=== PATIENT | male | born 1965 | race Caucasian/White ===

== ENCOUNTER 2025-04-22 18:21 | Emergency (ER) | payer SELFPAY ==
[~2025-04-22] VITALS: Ht 167.6 cm; Wt 78.0 kg
[2025-04-22 18:23] VITALS: O2SAT 96
[2025-04-22 19:54] LABS: EOSINOPHILS % 0.1 % (0.0-5.0); HEMATOCRIT. 36.8 % (42.0-52.0); HEMOGLOBIN. 11.9 g/dL (14.0-18.0); LYMPHOCYTES % 20.2 % (20.0-50.0); MEAN CORPUSCULAR HEMOGLOBIN 24.8 pg (28.0-32.0); MEAN CORPUSCULAR HGB CONC 32.3 g/dL (31.0-37.0); MEAN CORPUSCULAR VOLUME 76.8 fL (80.0-94.0); MEAN PLATELET VOLUME 9.5 fl (7.4-10.4); MONOCYTES % 6.8 % (2.0-8.0); NEUTROPHILS % 71.9 % (40.0-76.0); PLATELET 163 x1000/uL (130-400); RED BLOOD CELL COUNT 4.79 mill/uL (4.7-6.1); WHITE BLOOD COUNT 5.3 x1000/uL (4.5-11.0)
[2025-04-22 19:55] LABS: ADD RBC MORPHOLOGY YES; DIFFERENTIAL COMMENT 1
[2025-04-22 20:05] LABS: INR 1.1; PROTHROMBIN TIME 11.3 sec (9.6-11.0)
[2025-04-22 20:07] LABS: CHLORIDE 90 mEq/L (98-107); SODIUM 131 mEq/L (136-145)
[2025-04-22 20:08] LABS: CALCIUM 8.8 mg/dL (8.7-10.4); CARBON DIOXIDE 20 mEq/L (21-32)
[2025-04-22 20:13] LABS: CREATININE 0.7 mg/dL (0.6-1.3); GLUCOSE 96 mg/dL (70-105); TROPONIN I HIGH SENSITIVITY 7 ng/L (3.0-53); UREA NITROGEN BLOOD 12 mg/dL (9-23)
[2025-04-22 20:14] LABS: ANISOCYTOSIS 2+; HYPOCHROMASIA 1+; PLATELET ESTIMATE NORMAL
[2025-04-22 20:15] LABS: MICROCYTOSIS 1+
[2025-04-22 20:22] LABS: ETHANOL BLOOD 350 mg/dL (<10)
[2025-04-22 20:39] VITALS: TEMP 36.7
[2025-04-22 22:05] LABS: TROPONIN I HIGH SENSITIVITY 6 ng/L (3.0-53)
[2025-04-23] MEDS: POTASSIUM CHLORIDE 20MEQ TABLET SR PO NR (01:01)
[2025-04-23] MEDS: KCL 20MEQ/100ML PREMIX 100 ML IV NR (01:01)
[2025-04-23 02:43] VITALS: BP 125/81; PULSE 95; RESP 16; O2SAT 97
== END 2025-04-23 03:10 | disposition home or self-care (01) ==
LOC: ER 18:21 → CANBEDREQ 04-23 03:01 → ER 04-23 03:10
DX: R07.89 Other chest pain (principal); G92.9 Unspecified toxic encephalopathy; W06.XXXA Fall from bed, initial encounter; Y93.89 Activity, other specified; Y92.89 Other specified places as the place of occurrence of the external cause; Y99.8 Other external cause status
CPT/HCPCS: 80048; 80320; 85025; 85610; 84484; 36415; 71045; 93005; 99285; 96365; J3480; G0480

== ENCOUNTER 2025-05-28 17:53 | Emergency (ER) | payer MEDICAID ==
[~2025-05-28] VITALS: Ht 167.6 cm; Wt 75.0 kg
[2025-05-28 18:03] VITALS: O2SAT 100
[2025-05-28 19:48] LABS: BASOPHILS % 1.8 % (0.0-2.0); EOSINOPHILS % 1.0 % (0.0-5.0); HEMATOCRIT. 35.6 % (42.0-52.0); HEMOGLOBIN. 11.5 g/dL (14.0-18.0); LYMPHOCYTES % 32.3 % (20.0-50.0); MEAN PLATELET VOLUME 8.7 fl (7.4-10.4); MONOCYTES % 6.9 % (2.0-8.0); NEUTROPHILS % 58.0 % (40.0-76.0); PLATELET 149 x1000/uL (130-400); RED BLOOD CELL COUNT 4.25 mill/uL (4.7-6.1); RED CELL DISTRIBUTION WIDTH 24.8 % (11.6-14.6)
[2025-05-28 19:49] LABS: ADD RBC MORPHOLOGY YES
[2025-05-28 20:01] LABS: CREATININE 0.5 mg/dL (0.6-1.3)
[2025-05-28 20:02] LABS: UREA NITROGEN BLOOD 6 mg/dL (9-23)
[2025-05-28 20:04] LABS: PLATELET ESTIMATE NORMAL
[2025-05-28] MEDS: KETOROLAC 15MG/ML VIAL IM ONE (22:02)
[2025-05-28] MEDS: LIDOCAINE 5% PATCH TOP SCH (22:02)
[2025-05-28] MEDS ORDERED: NAPR-1176 MT (22:13)
[2025-05-28] MEDS ORDERED: LIDO-53 TP (22:13)
[2025-05-28 22:38] VITALS: BP 115/71; PULSE 90; RESP 18; TEMP 36.6; O2SAT 98
== END 2025-05-28 22:40 | disposition home or self-care (01) ==
LOC: ER 17:53
DX: R07.81 Pleurodynia (principal); F32.A Depression, unspecified; F10.90 Alcohol use, unspecified, uncomplicated; Z79.1 Long term (current) use of non-steroidal anti-inflammatories (NSAID); Y90.9 Presence of alcohol in blood, level not specified; W19.XXXA Unspecified fall, initial encounter; Y93.89 Activity, other specified; Y92.89 Other specified places as the place of occurrence of the external cause; Y99.8 Other external cause status
CPT/HCPCS: 99284; 80048; 85025; 36415; 71101; 96372; J1885

== ENCOUNTER 2025-09-29 12:39 | Emergency (ER) | payer MEDICAID, OTHER ==
[~2025-09-29] VITALS: Ht 172.7 cm; Wt 78.0 kg
[~2025-09-29 12:39] MED LIST: LIDO-53 TP; NAPR-1176 MT
[2025-09-29 12:41] VITALS: O2SAT 97
[2025-09-29] MEDS: KETOROLAC 30MG/ML VIAL IM ONE (13:57)
[2025-09-29] MEDS: POLYETHYLENE GLYCOL 3350 (17GM) 1 DOSE PACK PO ONE (13:57)
[2025-09-29] MEDS: DOCUSATE SODIUM 250MG CAPSULE PO ONE (14:17)
[2025-09-29] MEDS ORDERED: HC A30CR10 RC (14:53)
[2025-09-29] MEDS ORDERED: POLY17PO3 MT (14:53)
[2025-09-29] MEDS ORDERED: MAGN296S91 MT (14:53)
[2025-09-29 15:14] VITALS: BP 117/80; PULSE 95; RESP 18; TEMP 36.4; O2SAT 97
== END 2025-09-29 15:59 | disposition home or self-care (01) ==
LOC: ER 12:39
DX: K59.00 Constipation, unspecified (principal); F10.20 Alcohol dependence, uncomplicated; Z79.1 Long term (current) use of non-steroidal anti-inflammatories (NSAID); Z79.899 Other long term (current) drug therapy
CPT/HCPCS: 74176; 96372; 99285; Z7610; J1885